=== PATIENT | female | born 1980 | race American Indian/Alaskan Native ===

== ENCOUNTER 2016-10-25 20:30 | Emergency (ER) | payer OTHER ==
[2016-10-25 21:07] LABS: Basophils % (Auto) 0.8 % (0.0-1.8); Eosinophils % (Auto) 1.6 % (0.0-4.3); Hematocrit 36.4 % (30.3-42.9); Mean Corpuscular HGB Conc 33 % (30-34); Mean Corpuscular Hemoglobin 30 pg (28-32); Mean Corpuscular Volume 92 fl (79-97); Platelet Count 253 K/mm3 (140-440); Red Blood Count 3.97 M/mm3 (3.65-5.03); Red Cell Distribution Width 13.9 % (13.2-15.2); White Blood Count 8.4 K/mm3 (4.5-11.0)
[2016-10-25 21:32] LABS: Alanine Aminotransferase 15 units/L (7-56); Albumin 4.6 g/dL (3.9-5); Albumin/Globulin Ratio 1.4 %; Alkaline Phosphatase 96 units/L (35-129); Anion Gap 17 mmol/L; BUN/Creatinine Ratio 18.75; Blood Urea Nitrogen 15 mg/dL (7-17); Calcium 11.4 mg/dL (8.4-10.2); Carbon Dioxide 26 mmol/L (22-30); Chloride 101.6 mmol/L (98-107); Glucose 91 mg/dL (65-100); Lipase 51 units/L (13-60); Potassium 4.3 mmol/L (3.6-5.0); Sodium 140 mmol/L (137-145); Total Protein 7.8 g/dL (6.3-8.2)
[2016-10-25 22:52] LABS: Bilirubin,Urine NEG (Negative); Blood,Urine NEG (Negative); Ketones,Urine NEG (Negative); Leukocyte Esterase,Urine TR (Negative); Mucus,Urine FEW /HPF; Nitrite,Urine NEG (Negative); Protein,Urine <15 mg/dL mg/dL (Negative); Urobilinogen,Urine < 2.0 mg/dL (<2.0)
[2016-10-25] MEDS ORDERED: PROVENTIL IH ONE (23:05)
--- NOTE | 2016-10-26 06:28 | Emergency Department Report ---
ED Abdominal Pain HPI - General Chief Complaint: Abdominal Pain Stated Complaint: ABD PAIN Time Seen by Provider: 10/26/16 05:59 Source: patient Mode of arrival: Ambulatory Limitations: No Limitations - History of Present Illness Initial Comments: 36-year-old female presents to the emergency department with 2 days of right lower quadrant pain radiating to the back. Patient states pain started several days ago. She describes it as sharp in nature she has no nausea no vomiting. She does have some mild urinary frequency but no dysuria. She otherwise appears well. No diarrhea. No vaginal bleeding or vaginal discharge. MD Complaint: abdominal pain -: days(s) (2) Location: RLQ Radiation: R flank Migration to: no migration Severity: moderate Quality: sharp Consistency: constant Improves With: nothing Worsens With: nothing Associated Symptoms: denies: nausea, vomiting, diarrhea, constipation, dysuria, hematemesis, melena, hematuria - Related Data Previous Rx's Medication Instructions Recorded Last Taken Type Ibuprofen [Motrin] 800 mg PO Q8HR PRN #30 tablet 11/01/15 Unknown Rx Ibuprofen [Motrin] 600 mg PO Q8H PRN #30 tablet 10/26/16 Unknown Rx Allergies Allergy/AdvReac Type Severity Reaction Status Date / Time No Known Allergies Allergy Unverified 11/01/15 16:30 ED Review of Systems ROS: Stated complaint: ABD PAIN Other details as noted in HPI Comment: All other systems reviewed and negative Constitutional: denies: chills, fever Eyes: denies: eye pain, eye discharge, vision change ENT: denies: ear pain, throat pain Respiratory: denies: cough, shortness of breath, wheezing Cardiovascular: denies: chest pain, palpitations Endocrine: no symptoms reported Gastrointestinal: abdominal pain. denies: nausea, vomiting, diarrhea, constipation, hematemesis, melena, hematochezia Genitourinary: urgency. denies: dysuria, frequency, hematuria, discharge Musculoskeletal: denies: back pain, joint swelling, arthralgia Skin: denies: rash, lesions Neurological: denies: headache, weakness, paresthesias Psychiatric: denies: anxiety, depression Hematological/Lymphatic: denies: easy bleeding, easy bruising ED Past Medical Hx - Past Medical History Hx Asthma: Yes - Surgical History Additional Surgical History: cyst removed from right side of face - Family History Family history: no significant - Social History Smoking Status: Current Every Day Smoker - Medications Home Medications: Home Medications Medication Instructions Recorded Confirmed Last Taken Type Ibuprofen [Motrin] 800 mg PO Q8HR PRN #30 tablet 11/01/15 Unknown Rx Ibuprofen [Motrin] 600 mg PO Q8H PRN #30 tablet 10/26/16 Unknown Rx ED Physical Exam - General Limitations: No Limitations General appearance: alert, in no apparent distress - Head Head exam: Present: atraumatic, normocephalic - Eye Eye exam: Present: normal appearance. Absent: scleral icterus, conjunctival injection - ENT ENT exam: Present: mucous membranes moist - Neck Neck exam: Present: normal inspection. Absent: lymphadenopathy - Respiratory Respiratory exam: Present: normal lung sounds bilaterally. Absent: respiratory distress, wheezes - Cardiovascular Cardiovascular Exam: Present: regular rate, normal rhythm, normal heart sounds. Absent: systolic murmur, diastolic murmur, rubs, gallop - GI/Abdominal GI/Abdominal exam: Present: soft, tenderness (mild right lower quadrant tenderness), normal bowel sounds. Absent: distended, guarding, rebound - Extremities Exam Extremities exam: Present: normal inspection - Back Exam Back exam: Present: normal inspection - Neurological Exam Neurological exam: Present: alert, oriented X3 - Psychiatric Psychiatric exam: Present: normal affect, normal mood - Skin Skin exam: Present: warm, dry, intact, normal color. Absent: rash ED Course Vital Signs 10/25/16 10/26/16 10/26/16 20:42 01:53 07:20 Temperature 98.5 F 97.8 F 98.7 F Pulse Rate 86 86 92 H Respiratory 18 18 16 Rate Blood Pressure 120/76 100/58 Blood Pressure 102/67 [Right] O2 Sat by Pulse 98 100 99 Oximetry 10/26/16 09:57 Temperature 98.6 F Pulse Rate 87 Respiratory 16 Rate Blood Pressure Blood Pressure 113/79 [Right] O2 Sat by Pulse 100 Oximetry ED Medical Decision Making - Lab Data Result diagrams: 10/25/16 20:52 10/25/16 20:52 Laboratory Last Values WBC 8.4 K/mm3 (4.5-11.0) 10/25/16 20:52 RBC 3.97 M/mm3 (3.65-5.03) 10/25/16 20:52 Hgb 12.0 gm/dl (10.1-14.3) 10/25/16 20:52 Hct 36.4 % (30.3-42.9) 10/25/16 20:52 MCV 92 fl (79-97) 10/25/16 20:52 MCH 30 pg (28-32) 10/25/16 20:52 MCHC 33 % (30-34) 10/25/16 20:52 RDW 13.9 % (13.2-15.2) 10/25/16 20:52 Plt Count 253 K/mm3 (140-440) 10/25/16 20:52 Lymph % (Auto) 29.8 % (13.4-35.0) 10/25/16 20:52 [place] % (Auto) 8.4 % (0.0-7.3) H 10/25/16 20:52 Eos % (Auto) 1.6 % (0.0-4.3) 10/25/16 20:52 Baso % (Auto) 0.8 % (0.0-1.8) 10/25/16 20:52 Lymph # 2.5 K/mm3 (1.2-5.4) 10/25/16 20:52 [place] # 0.7 K/mm3 (0.0-0.8) 10/25/16 20:52 Eos # 0.1 K/mm3 (0.0-0.4) 10/25/16 20:52 Baso # 0.1 K/mm3 (0.0-0.1) 10/25/16 20:52 Seg Neutrophils % 59.4 % (40.0-70.0) 10/25/16 20:52 Seg Neutrophils # 5.0 K/mm3 (1.8-7.7) 10/25/16 20:52 Sodium 140 mmol/L (137-145) 10/25/16 20:52 Potassium 4.3 mmol/L (3.6-5.0) 10/25/16 20:52 Chloride 101.6 mmol/L (98-107) 10/25/16 20:52 Carbon Dioxide 26 mmol/L (22-30) 10/25/16 20:52 Anion Gap 17 mmol/L 10/25/16 20:52 BUN 15 mg/dL (7-17) 10/25/16 20:52 Creatinine 0.8 mg/dL (0.7-1.2) 10/25/16 20:52 Estimated GFR > 60 ml/min 10/25/16 20:52 BUN/Creatinine Ratio 18.75 % 10/25/16 20:52 Glucose 91 mg/dL (65-100) 10/25/16 20:52 Calcium 11.4 mg/dL (8.4-10.2) H 10/25/16 20:52 Total Bilirubin 0.40 mg/dL (0.1-1.2) 10/25/16 20:52 AST 13 units/L (5-40) 10/25/16 20:52 ALT 15 units/L (7-56) 10/25/16 20:52 Alkaline Phosphatase 96 units/L (35-129) 10/25/16 20:52 Total Protein 7.8 g/dL (6.3-8.2) 10/25/16 20:52 Albumin 4.6 g/dL (3.9-5) 10/25/16 20:52 Albumin/Globulin Ratio 1.4 % 10/25/16 20:52 Lipase 51 units/L (13-60) 10/25/16 20:52 HCG, Qual Negative (Negative) 10/25/16 20:52 Urine Color Yellow (Yellow) 10/25/16 22:18 Urine Turbidity Clear (Clear) 10/25/16 22:18 Urine pH 7.0 (5.0-7.0) 10/25/16 22:18 Ur Specific [place] 1.015 (1.003-1.030) 10/25/16 22:18 Urine Protein <15 mg/dl mg/dL (Negative) 10/25/16 22:18 Urine Glucose (UA) Neg mg/dL (Negative) 10/25/16 22:18 Urine Ketones Neg mg/dL (Negative) 10/25/16 22:18 Urine Blood Neg (Negative) 10/25/16 22:18 Urine Nitrite Neg (Negative) 10/25/16 22:18 Urine Bilirubin Neg (Negative) 10/25/16 22:18 Urine Urobilinogen < 2.0 mg/dL (<2.0) 10/25/16 22:18 Ur Leukocyte Esterase Tr (Negative) 10/25/16 22:18 Urine WBC (Auto) 3.0 /HPF (0.0-6.0) 09/18/17 22:18 Urine RBC (Auto) 5.0 /HPF (0.0-6.0) 10/25/16 22:18 U Epithel Cells (Auto) < 1.0 /HPF (0-13.0) 10/25/16 22:18 Urine Mucus Few /HPF 10/25/16 22:18 - Medical Decision Making 36-year-old female who presents emergency Department with complaint right lower quadrant pain. Patient states she is has had pain for the last 2 days. Denies fevers chills. She is mildly tender right lower quadrant. Plan to get an ultrasound of the pelvis. Do not suspect acute surgical pathology. Normal white count, she does have a few white blood cells in her urine. 1.7 cm right ovarian cyst noted. Plan to discharge home with NSAIDs. Follow up with outpatient machine learning intern. Portions of this chart were dictated with dictation software. There may be dictation errors contained within this note. Critical care attestation.: If time is entered above; I have spent that time in minutes in the direct care of this critically ill patient, excluding procedure time. ED Disposition Clinical Impression: Ovarian cyst Disposition: DC-01 TO HOME OR SELFCARE Is pt being admited?: No Condition: Stable Instructions: Abdominal Pain (ED) Prescriptions: Ibuprofen [Motrin] 600 mg PO Q8H PRN #30 tablet PRN Reason: Pain Referrals: DAVON KING [Other] - 3-5 Days
--- NOTE | 2016-10-26 08:57 | Ultrasound Report ---
ULTRASOUND PELVIC COMPLETE ULTRASOUND TRANSVAGINAL HISTORY: Right lower quadrant pain, abdominal pain. TECHNIQUE: Transabdominal and transvaginal ultrasound with color and spectral doppler interrogation. The uterus is anteverted and measures 8 x 4 x 5 cm. A fundal fibroid measures 2.6 x 3.2 x 3.1 cm. The endometrial stripe measures 1.2 cm. The right ovary measures 3.4 x 1.4 x 3.1 cm. A 1.7 cm simple cyst is identified in the right ovary. The left ovary is unremarkable measuring 2.5 x 1.4 x 2.2 cm. No pelvic fluid collection. IMPRESSION: 1.7 cm right ovarian cyst. Uterine fibroid.
[2016-10-26 09:58] VITALS: BP 113/79
== END 2016-10-26 10:36 | disposition home or self-care (01) ==
LOC: ED 20:30
DX: N83.209 Unspecified ovarian cyst, unspecified side (principal); J45.909 Unspecified asthma, uncomplicated; F17.200 Nicotine dependence, unspecified, uncomplicated
CPT/HCPCS: 36415; 76830; 76856; 80053; 81001; 83690; 84703; 85025; 94640

== ENCOUNTER 2017-02-09 11:54 | Emergency (ER) | payer BC, OTHER ==
[2017-02-09 13:43] LABS: Basophils # (Auto) 0.1 K/mm3 (0.0-0.1); Basophils % (Auto) 0.6 % (0.0-1.8); Eosinophils % (Auto) 0.3 % (0.0-4.3); Hematocrit 37.8 % (30.3-42.9); Hemoglobin 12.3 gm/dl (10.1-14.3); Lymphocytes # (Auto) 1.3 K/mm3 (1.2-5.4); Lymphocytes % (Auto) 10.4 % (13.4-35.0); Mean Corpuscular HGB Conc 33 % (30-34); Mean Corpuscular Hemoglobin 30 pg (28-32); Mean Corpuscular Volume 93 fl (79-97); Monocytes # (Auto) 0.6 K/mm3 (0.0-0.8); Monocytes % (Auto) 4.5 % (0.0-7.3); Platelet Count 273 K/mm3 (140-440); Red Blood Count 4.06 M/mm3 (3.65-5.03); Red Cell Distribution Width 13.7 % (13.2-15.2)
[2017-02-09 13:55] LABS: Bacteria,Urine 2+ /HPF (Negative); Bilirubin,Urine NEG (Negative); Blood,Urine LG (Negative); Color,Urine Yellow (Yellow); Mucus,Urine 1+ /HPF; Nitrite,Urine NEG (Negative); Protein,Urine <15 mg/dL mg/dL (Negative); Urobilinogen,Urine < 2.0 mg/dL (<2.0)
[2017-02-09 14:00] LABS: Alanine Aminotransferase 21 units/L (7-56); Albumin 4.5 g/dL (3.9-5); BUN/Creatinine Ratio 16; Blood Urea Nitrogen 13 mg/dL (7-17); Calcium 11.5 mg/dL (8.4-10.2); Hemolysis Index 6
--- NOTE | 2017-02-09 15:34 | XRay Report ---
ROUTINE CHEST, TWO VIEWS: History: Shortness of breath. PA and lateral views demonstrate the heart and mediastinal contour to be of normal size and shape. The lungs are clear and fully expanded and the soft tissues and bony structures are normal. IMPRESSION: Normal study.
[2017-02-09 16:59] VITALS: BP 112/68
== END 2017-02-09 21:57 | disposition left against medical advice (07) ==
LOC: ED 11:54
DX: R10.9 Unspecified abdominal pain (principal); Z53.21 Procedure and treatment not carried out due to patient leaving prior to being seen by health care provider
CPT/HCPCS: 36415; 71046; 80053; 81001; 85025

== ENCOUNTER 2017-10-02 21:16 | Emergency (ER) | payer OTHER ==
[2017-10-02 21:21] VITALS: BP 120/74
--- NOTE | 2017-10-02 22:11 | XRay Report ---
FINAL REPORT EXAM: XR ANKLE 3+V RT HISTORY: pain/swelling r/t injury TECHNIQUE: Frontal, lateral and mortise views right ankle Comparison: None FINDINGS: There is no evidence of fracture or subluxation. The mortise joint is maintained. The soft tissues are notable for the appearance of edema in the lower leg and ankle. IMPRESSION: 1. Appearance of edema in the lower leg and ankle. 2. No evidence of fracture or subluxation.
[2017-10-03] MEDS ORDERED: ULTRAM PO ONE (00:26)
--- NOTE | 2017-10-03 01:14 | Emergency Department Report ---
ED Lower Extremity HPI - General Chief Complaint: Extremity Injury, Lower Stated Complaint: RT ANKLE PAIN Time Seen by Provider: 10/03/17 00:21 Source: patient Mode of arrival: Ambulatory Limitations: No Limitations - History of Present Illness Initial Comments: A 37-year-old Afro-[place] female who states right ankle pain after twisting it and missing a step this afternoon patient states she E Fran her right ankle with ankle pain and swelling similar to an aching and tingling pain is exacerbated by tender weight bearing initially by offloading elevating his no open wounds bleeding or lacerations Complaint: ankle injury Onset/Timin -: hour(s) Injury: Ankle: Right Type of Injury: eversion Place: home Severity: moderate Severity scale (0 -10): 5 Improves With: rest Worsens With: weight bearing, movement, palpation Context: fall Other Symptoms: loss of consciousness Associated Symptoms: swelling, tingling, unable to bear weight - Related Data Previous Rx's Medication Instructions Recorded Last Taken Type Ibuprofen [Motrin] 800 mg PO Q8HR PRN #30 tablet 11/01/15 Unknown Rx Ibuprofen [Motrin] 600 mg PO Q8H PRN #30 tablet 10/26/16 Unknown Rx Cyclobenzaprine [Flexeril] 10 mg PO BID PRN #20 tablet 10/03/17 Unknown Rx Naproxen [Naprosyn] 500 mg PO BID PRN #30 tablet 10/03/17 Unknown Rx Allergies Allergy/AdvReac Type Severity Reaction Status Date / Time No Known Allergies Allergy Unverified 11/01/15 16:30 ED Review of Systems ROS: Stated complaint: RT ANKLE PAIN Other details as noted in HPI Constitutional: denies: chills, fever Eyes: denies: eye pain, eye discharge, vision change ENT: denies: ear pain, throat pain Respiratory: denies: cough, shortness of breath, wheezing Cardiovascular: denies: chest pain, palpitations Endocrine: no symptoms reported Gastrointestinal: denies: abdominal pain, nausea, diarrhea Genitourinary: denies: urgency, dysuria, discharge Musculoskeletal: joint swelling, myalgia Skin: denies: rash, lesions Neurological: denies: headache, weakness, paresthesias Psychiatric: denies: anxiety, depression Hematological/Lymphatic: denies: easy bleeding, easy bruising ED Past Medical Hx - Past Medical History Hx Asthma: Yes - Surgical History Additional Surgical History: cyst removed from right side of face - Social History Smoking Status: Current Every Day Smoker Substance Use Type: None - Medications Home Medications: Home Medications Medication Instructions Recorded Confirmed Last Taken Type Ibuprofen [Motrin] 800 mg PO Q8HR PRN #30 tablet 11/01/15 Unknown Rx Ibuprofen [Motrin] 600 mg PO Q8H PRN #30 tablet 10/26/16 Unknown Rx Cyclobenzaprine [Flexeril] 10 mg PO BID PRN #20 tablet 10/03/17 Unknown Rx Naproxen [Naprosyn] 500 mg PO BID PRN #30 tablet 10/03/17 Unknown Rx ED Physical Exam - General Limitations: No Limitations General appearance: alert, in no apparent distress - Head Head exam: Present: atraumatic, normocephalic - Eye Eye exam: Present: normal appearance - ENT ENT exam: Present: mucous membranes moist - Neck Neck exam: Present: normal inspection - Respiratory Respiratory exam: Present: normal lung sounds bilaterally. Absent: respiratory distress - Cardiovascular Cardiovascular Exam: Present: regular rate, normal rhythm. Absent: systolic murmur, diastolic murmur, rubs, gallop - GI/Abdominal GI/Abdominal exam: Present: soft, normal bowel sounds - Rectal Rectal exam: Present: deferred - Extremities Exam Extremities exam: Present: tenderness (right medial ankle ), normal capillary refill, joint swelling. Absent: calf tenderness - Expanded Lower Extremity Exam Right Ankle exam: Present: tenderness, swelling. Absent: abrasion, laceration, ecchymosis, deformity, crepidus, dislocation, erythema, anterior draw sign Foot/Toe exam: Present: normal inspection, full ROM Neuro vascular tendon exam: Present: no vascular compromise, pulse deficit. Absent: abnormal cap refill, motor deficit, pallor, abnormal 2-point discrimination, decreased fine/light touch, foot drop, peroneal nerve deficit, significant pain with passive ROM of distal joint Gait: Positive: observed and limited by pain - Back Exam Back exam: Present: normal inspection, full ROM. Absent: tenderness - Neurological Exam Neurological exam: Present: alert, oriented X3, CN II-XII intact, abnormal gait , reflexes normal. Absent: motor sensory deficit - Psychiatric Psychiatric exam: Present: normal affect, normal mood - Skin Skin exam: Present: warm, dry, intact, normal color. Absent: rash ED Course Vital Signs 10/02/17 10/02/17 21:20 21:21 Temperature 99.3 F 99.3 F Pulse Rate 105 H 101 H Respiratory 18 18 Rate Blood Pressure 120/74 120/74 O2 Sat by Pulse 97 96 Oximetry ED Lower Extremity MDM - Radiology Data Radiology results: report reviewed, image reviewed No fracture moderate soft tissue swelling right ankle - Medical Decision Making This is a medial ankle sprain plan [place] wrap and ankle stirrup and crutches with easy prescription for naproxen and Flexeril patient will follow-up with also in 2-3 days splint check completed to pulses palpable patient demonstrated safe use of crutches patient DC to home in stable condition at this time we'll follow with ortho in 2 to 3 days Critical care attestation.: If time is entered above; I have spent that time in minutes in the direct care of this critically ill patient, excluding procedure time. ED Disposition Clinical Impression: Medial ankle sprain Qualifiers: Encounter type: initial encounter Laterality: right Qualified Code(s): S93.421A - Sprain of deltoid ligament of right ankle, initial encounter Disposition: DC-01 TO HOME OR SELFCARE Is pt being admited?: No Does the pt Need Aspirin: No Condition: Good Instructions: Ankle Sprain (ED), Ankle Stirrup Splint (ED), Ankle Exercises ( GEN) Prescriptions: Cyclobenzaprine [Flexeril] 10 mg PO BID PRN #20 tablet PRN Reason: Muscle Spasm Naproxen [Naprosyn] 500 mg PO BID PRN #30 tablet PRN Reason: pain Referrals: NIC LEGER MD [Staff Physician] - 3-5 Days Forms: Work/School Release Form(ED) Time of Disposition: 01:16
== END 2017-10-03 01:20 | disposition home or self-care (01) ==
LOC: ED 21:16
DX: S93.421A Sprain of deltoid ligament of right ankle, initial encounter (principal); J45.909 Unspecified asthma, uncomplicated; F17.200 Nicotine dependence, unspecified, uncomplicated; W10.9XXA Fall (on) (from) unspecified stairs and steps, initial encounter; Y93.89 Activity, other specified; Y92.009 Unspecified place in unspecified non-institutional (private) residence as the place of occurrence of the external cause; Y99.8 Other external cause status
CPT/HCPCS: 99283

== ENCOUNTER 2018-06-27 15:00 | Emergency (ER) | payer SELFPAY ==
--- NOTE | 2018-06-27 15:39 | Emergency Department Report ---
Blank Doc - Documentation Documentation: 38 y o female presents to ed cc of right sided flank pain x 2 weeks ago cc of pain worsens with inhaling no trauma ua,upt ACC eval
[2018-06-27] MEDS ORDERED: SUBLIMAZE IV ONE (16:45)
[2018-06-27] MEDS ORDERED: TORADOL IV ONE (16:45)
[2018-06-27] MEDS ORDERED: NACL 0.9% 500 ML 500 ML IV ONE (16:46)
[2018-06-27 17:10] LABS: Bilirubin,Urine NEG (Negative); Blood,Urine MOD (Negative); Color,Urine Yellow (Yellow); HCG Qualitative,Urine Negative (Negative); Mucus,Urine 1+ /HPF; Protein,Urine <15 mg/dL mg/dL (Negative)
--- NOTE | 2018-06-27 17:16 | Emergency Department Report ---
ED General Adult HPI - General Chief complaint: Abdominal Pain Stated complaint: LOWER BACK/ABD PAIN/BREATHING PAIN Time Seen by Provider: 06/27/18 15:34 Source: patient, RN notes reviewed Mode of arrival: Ambulatory Limitations: No Limitations - History of Present Illness Initial comments: This is a pleasant 38-year-old female who is not known to this provider previously. The patient is not known as provided previously. She reports that she is not . She does not have primary care doctor. She reports that she does not take oral contraceptives. She denies chronic medical conditions. The patient presents to the emergency room with complaint of nontraumatic right- sided upper thoracic back pain, right upper quadrant pain, flank pain. This pain is present for the past 2-3 weeks. It radiates from the back to the front, and vice versa. It increases with palpation, deep inspiration, twisting, sitting, and decreases with rest. No significant improvement with symptoms with [id number] remedies. The patient denies oral contraceptive use, leg pain, leg swelling, surgeries, immobilization. She is right-hand dominant and indic ates no heavy lifting. She feels like her urine has been "off colored." However, she denies irritative/obstructive urinary symptoms. She denies chest pain, shortness of breath. She denies left-sided abdominal pain. She denies dysuria. She denies leg pain or leg swelling. -: Gradual, week(s) Location: back, abdomen Radiation: abdomen Severity scale (0 -10): 7 Quality: aching Consistency: other Improves with: other Worsens with: other - Related Data Previous Rx's Medication Instructions Recorded Last Taken Type Ibuprofen [Motrin] 800 mg PO Q8HR PRN #30 tablet 11/01/15 Unknown Rx Ibuprofen [Motrin] 600 mg PO Q8H PRN #30 tablet 10/26/16 Unknown Rx Cyclobenzaprine [Flexeril] 10 mg PO BID PRN #20 tablet 10/03/17 Unknown Rx Naproxen [Naprosyn] 500 mg PO BID PRN #30 tablet 10/03/17 Unknown Rx Acetaminophen [Non-Aspirin Extra 500 mg PO Q6HR PRN #30 tablet 06/27/18 Unknown Rx Strength] Ibuprofen [Motrin] 600 mg PO Q8H PRN #30 tablet 06/27/18 Unknown Rx Allergies Allergy/AdvReac Type Severity Reaction Status Date / Time No Known Allergies Allergy Verified 06/27/18 15:02 ED Review of Systems ROS: Stated complaint: LOWER BACK/ABD PAIN/BREATHING PAIN Other details as noted in HPI Constitutional: denies: fever Eyes: denies: eye discharge ENT: denies: epistaxis Respiratory: denies: cough, shortness of breath Cardiovascular: denies: chest pain Gastrointestinal: abdominal pain, nausea. denies: vomiting Genitourinary: hematuria. denies: urgency, dysuria Musculoskeletal: back pain Skin: denies: lesions Neurological: denies: weakness Psychiatric: denies: anxiety ED Past Medical Hx - Past Medical History Hx Asthma: Yes - Surgical History Additional Surgical History: cyst removed from right side of face - Social History Smoking Status: Current Every Day Smoker Substance Use Type: None - Medications Home Medications: Home Medications Medication Instructions Recorded Confirmed Last Taken Type Ibuprofen [Motrin] 800 mg PO Q8HR PRN #30 tablet 11/01/15 Unknown Rx Ibuprofen [Motrin] 600 mg PO Q8H PRN #30 tablet 10/26/16 Unknown Rx Cyclobenzaprine [Flexeril] 10 mg PO BID PRN #20 tablet 10/03/17 Unknown Rx Naproxen [Naprosyn] 500 mg PO BID PRN #30 tablet 10/03/17 Unknown Rx Acetaminophen [Non-Aspirin Extra 500 mg PO Q6HR PRN #30 tablet 06/27/18 Unknown Rx Strength] Ibuprofen [Motrin] 600 mg PO Q8H PRN #30 tablet 06/27/18 Unknown Rx ED Physical Exam - General Limitations: No Limitations, Other (patient noted to be speaking and playing on a cellular phone, and no acute distress) General appearance: alert, in no apparent distress - Head Head exam: Present: atraumatic, normocephalic - Eye Eye exam: Present: normal appearance, EOMI. Absent: nystagmus - ENT ENT exam: Present: normal exam, normal orophraynx, mucous membranes moist, normal external ear exam - Neck Neck exam: Present: normal inspection, full ROM. Absent: tenderness, meningismus - Respiratory Respiratory exam: Present: normal lung sounds bilaterally. Absent: respiratory distress - Cardiovascular Cardiovascular Exam: Present: regular rate, normal rhythm, normal heart sounds, other (chaperoned by lorenza Eden). Absent: bradycardia, tachycardia, irregular rhythm, systolic murmur, diastolic murmur, rubs, gallop - GI/Abdominal GI/Abdominal exam: Present: soft, tenderness, other (there is right mid flank tenderness. There is right upper quadrant tenderness. There is no right lower quadrant tenderness. There is negative Diego sign. There is negative Rovsing sign.). Absent: distended, guarding, rebound, rigid, pulsatile mass - Extremities Exam Extremities exam: Present: normal inspection, full ROM, other (2+ pulses noted in the bilateral upper, lower extremities. Compartments soft. No long bony tenderness. The pelvis is stable.). Absent: pedal edema, joint swelling, calf tenderness - Back Exam Back exam: Present: normal inspection, full ROM, CVA tenderness (R), paraspinal tenderness. Absent: tenderness, CVA tenderness (L), muscle spasm, vertebral tenderness - Neurological Exam Neurological exam: Present: alert, oriented X3, normal gait, other (Extraocular movements intact. Tongue midline. No facial droop. Facial sensation intact to light touch in the V1, V2, V3 distribution bilaterally. 5 and 5 strength in 4 extremities.. Sensation is intact to light touch in 4 extremities.). Absent: motor sensory deficit - Psychiatric Psychiatric exam: Present: normal affect, normal mood - Skin Skin exam: Present: warm, dry, intact, normal color. Absent: rash ED Course Vital Signs 06/27/18 06/27/18 06/27/18 15:34 18:26 18:27 Temperature 98 F Pulse Rate 84 Respiratory 18 18 18 Rate Blood Pressure Blood Pressure 115/69 [Right] O2 Sat by Pulse 99 Oximetry 06/27/18 06/27/18 06/27/18 18:34 18:45 18:47 Temperature Pulse Rate 85 Respiratory 16 Rate Blood Pressure Blood Pressure 120/65 [Right] O2 Sat by Pulse 99 99 98 Oximetry 06/27/18 06/27/18 06/27/18 19:00 19:15 19:31 Temperature Pulse Rate Respiratory Rate Blood Pressure 122/76 119/77 111/69 Blood Pressure [Right] O2 Sat by Pulse 100 100 100 Oximetry - Reevaluation(s) Reevaluation #1: 06/27/18 17:14 Differential diagnosis, including not limited to: Musculoskeletal pain, biliary colic, renal colic, pneumonia, urinary tract infection Assessment and plan: 38-year-old female, not tachycardic, not hypoxic, no pulmonary embolus or DVT risk factors, low risk by well's criteria, perc negative, with abdominal and flank pain, and right-sided abdominal tenderness. The patient is afebrile, with reassuring vital signs, and does not appear to be in any acute distress. We will treat her symptoms. We will obtain appropriate screening laboratory studies. Right upper quadrant ultrasound ordered, x-ray of the chest ordered, CT scan of the abdomen and pelvis ordered. We will reassess after her data points have resulted. Reevaluation #2: 06/27/18 21:53 The patient is reevaluated multiple times during her stay here in the emergency room. She is in no acute distress, and her belly is soft on repeat examinations. She is noted to be playing on a phone multiple times during multiple repeat evaluations. She endorses a known history of fibroids. CT scan reports are reviewed and appreciated. The patient will need to follow up with her primary care doctor for further evaluates the incidental ovoid mass noted next to the gallbladder. The patient was given copies of her CT scan reports, and ultrasound, and strongly encouraged to follow up as an outpatient. For the patient's uterine fibroid, she will be referred to outpatient gynecology. The patient endorses a known history of fibroids, and it is my opinion that she does not require emergency pelvic ultrasound. The patient is also encouraged to follow-up with an outpatient urology spe cialist for microscopic hematuria, nephrolithiasis. ED Medical Decision Making - Lab Data Result diagrams: 06/27/18 17:10 06/27/18 17:10 Vital Signs 06/27/18 15:34 Temperature 98 F Pulse Rate 84 Respiratory 18 Rate Blood Pressure 115/69 [Right] O2 Sat by Pulse 99 Oximetry Lab Results 06/27/18 Range/Units 15:59 Urine Color Yellow (Yellow) Urine Turbidity Clear (Clear) Urine pH 5.0 (5.0-7.0) Ur Specific Roundup 1.020 (1.003-1.030) Urine Protein <15 mg/dl (Negative) mg/dL Urine Glucose (UA) Neg (Negative) mg/dL Urine Ketones Neg (Negative) mg/dL Urine Blood Mod (Negative) Urine Nitrite Neg (Negative) Urine Bilirubin Neg (Negative) Urine Urobilinogen 2.0 (<2.0) mg/dL Ur Leukocyte Esterase Neg (Negative) Urine WBC (Auto) 7.0 H (0.0-6.0) /HPF Urine RBC (Auto) 29.0 (0.0-6.0) /HPF U Epithel Cells (Auto) 1.0 (0-13.0) /HPF Urine Mucus 1+ /HPF Urine HCG, Qual Negative (Negative) - EKG Data -: EKG Interpreted by Or EKG shows normal: sinus rhythm Rate: normal - EKG Data When compared to previous EKG there are: previous EKG unavailable 06/27/18 17:15 This is a sinus rhythm, 87 bpm, normal axis, normal intervals, low voltage in the anteroseptal leads, motion artifact in the lateral leads, this is an abnormal EKG, the patient is not having chest pain, this EKG is not consistent with ST elevation myocardial infarction. There is no prior EKG available for comparison. - Radiology Data Radiology results: pending, report reviewed, image reviewed Print Report Referring Physician: VICTOR M BETANCUR Patient Name: EYAL REMY Date of : 1980 Sex: Female Report Date: 2018-06-27 Report Status: Finalized Findings [facility] [address] [place] [address] Ultrasound Report Signed Patient: EYAL REMY MR#: [id number] : 1980 Acct:[id number] Age/Sex: 38 / F ADM Date: 06/27/18 Loc: ED Attending Dr: Ordering Physician: VICTOR M BETANCUR MD Date of Service: 06/27/18 Procedure(s): US abdomen limited Accession Number(s): [id number] cc: VICTOR M BETANCUR MD PROCEDURE: US GALLBLADDER TECHNIQUE: Real-time sonography in multiple planes of the gallbladder fossa and CBD with imaging of the adjacent liver, pancreas, and right kidney was performed with image documentation. CPT 01068 HISTORY: Right upper quadrant pain COMPARISONS: None . FINDINGS: Liver: There is a ovoid solid-appearing mass adjacent to the gallbladder. Gallbladder: Fluid filled. No gallstones, wall thickening, pericholecystic fluid, or sonographic Diego's sign. Intrahepatic bile ducts: Normal . Extrahepatic bile ducts: 5 mm in caliber. Pancreas: Not fully visualized. Right kidney: Normal echotexture. No focal renal mass, calculus, or hydronep hrosis. Other: No free fluid. IMPRESSION: Ovoid solid-appearing mass is seen in the liver adjacent to the gallbladder. No cholelithiasis or evidence of cholecystitis. . This document is electronically signed by Talia Gómez MD., Jun 27 2018 09:37:10 PM ET Transcribed By: [facility] Dictated By: TALIA GÓMEZ M.D. Electronically Authenticated By: TALIA GÓMEZ M.D. Signed Date/Time: 06/27/182138 Print Report Referring Physician: VICTOR M BETANCUR Patient Name: EYAL REMY Date of : 1980 Sex: Female Report Date: 2018-06-27 Report Status: Finalized Findings [facility] [address] [place] [address] Cat Scan Report Signed Patient: EYAL REMY MR#: [id number] : 1980 Acct:[id number] Age/Sex: 38 / F ADM Date: 06/27/18 Loc: ED Attending Dr: Ordering Physician: VICTOR M BETANCUR MD Date of Service: 06/27/18 Procedure(s): CT abdomen pelvis w con Accession Number(s): [id number] cc: VICTOR M BETANCUR MD PROCEDURE: CT ABDOMEN PELVIS W CON TECHNIQUE: Computerized axial tomography of the abdomen and pelvis was performed after the IV injection of iodinated nonionic contrast. HISTORY: right sided abd pain COMPARISONS: None . FINDINGS: Visualized lower thorax: No significant abnormality. Liver: Normal size and attenuation. Spleen: Normal size and attenuation. Gallbladder and biliary system: Normal. Pancreas: Normal. Adrenals: Normal. Kidneys: Nonobstructing left renal calculus, measuring 3 mm. There is a 4 mm calculus in the right renal pelvis. No ureteral calculi are seen GI tract: Appendix is visualized and does not appear inflamed. No bowel obstruction or inflammation . Lymph nodes and mesentery: Normal. Vasculature: Normal.. Bladder: Normal. Reproductive organs: There is a solid heterogeneously enhancing mass abutting the uterine fundus, measuring up to 7.8 cm. This could be related to a large uterine fibroid. Peritoneum: There is a small amount of free fluid in the pelvis. Musculoskeletal structures: No significant abnormality. Other: None . IMPRESSION: Bilateral nonobstructing renal calculi. No ureteral calculi are seen. No bowel obstruction or inflammation. Pelvic mass is likely related to a uterine fibroid. Findings favored less likely to be related to ovarian mass. Correlate with pelvic ultrasound, if not already performed . This document is electronically signed by Talia Gómez MD., Jun 27 2018 07:55:11 PM ET Transcribed By: [facility] Dictated By: TALIA GÓMEZ M.D. Electronically Authenticated By: TALIA GÓMEZ M.D. Signed Date/Time: 06/27/181955 Critical care attestation.: If time is entered above; I have spent that time in minutes in the direct care of this critically ill patient, excluding procedure time. ED Disposition Clinical Impression: Abdominal pain, Microscopic hematuria Disposition: DC-01 TO HOME OR SELFCARE Is pt being admited?: No Does the pt Need Aspirin: No Condition: Stable Instructions: Abdominal Pain (ED) Additional Instructions: Take the pain medication as needed/directed. Rest, avoid heavy lifting, and avoid strenuous physical activities. CT scan of the abdomen and pelvis and ultrasound demonstrated multiple incidental findings which require outpatient follow-up. Nonspecific mass was noted next to the gallbladder on CT scan and ultrasound. The patient should follow-up with the primary care doctor within the next month to have this further evaluated. Not following up as recommended may resultant undiagnosed tumor, cancer, malignancy. CT scan of the abdomen and pelvis demonstrated nonspecific pelvic mass, likely uterine fibroid. Please follow-up with a agency service coordinator for this within the next 3-4 weeks. Not following up as recommended may resultant undiagnosed tumor, cancer, malignancy. Laboratory studies demonstrated elevated calcium levels, patient should consume 4-6 cups of water per day, and follow up with the primary care doctor within the next month to have calcium levels rechecked. Laboratory studies demonstrated blood in the urine, and this should be followed up by either her primary care doctor or urology specialist within the next month. Return to the emergency room right away with new, worsening or different symptoms, or symptoms not present on the initial ER evaluation. Prescriptions: Ibuprofen [Motrin] 600 mg PO Q8H PRN #30 tablet PRN Reason: Pain Acetaminophen [Non-Aspirin Extra Strength] 500 mg PO Q6HR PRN #30 tablet PRN Reason: Pain , Severe (7-10) Referrals: [facility] [Provider Group] - 3-5 Days [facility] [Provider Group] - 3-5 Days [facility] [Provider Group] - 3-5 Days Forms: Work/School Release Form(ED)
[2018-06-27 17:22] LABS: Hematocrit 40.6 % (30.3-42.9); Hemoglobin 13.3 gm/dl (10.1-14.3); Mean Corpuscular HGB Conc 33 % (30-34); Mean Corpuscular Volume 94 fl (79-97); Platelet Count 239 K/mm3 (140-440); Red Blood Count 4.33 M/mm3 (3.65-5.03); Red Cell Distribution Width 13.8 % (13.2-15.2)
[2018-06-27 17:41] LABS: Alanine Aminotransferase 23 units/L (7-56); Albumin 4.7 g/dL (3.9-5); BUN/Creatinine Ratio 14; Blood Urea Nitrogen 14 mg/dL (7-17); Calcium 11.8 mg/dL (8.4-10.2); Hemolysis Index 8
[2018-06-27 17:45] LABS: INR 0.92 (0.87-1.13)
[2018-06-27 19:32] VITALS: BP 111/69
--- NOTE | 2018-06-27 19:56 | Cat Scan Report ---
PROCEDURE: CT ABDOMEN PELVIS W CON TECHNIQUE: Computerized axial tomography of the abdomen and pelvis was performed after the IV inject ion of iodinated nonionic contrast. HISTORY: right sided abd pain COMPARISONS: None . FINDINGS: Visualized lower thorax: No significant abnormality. Liver: Normal size and attenuation. Spleen: Normal size and attenuation. Gallbladder and biliary system: Normal. Pancreas: Normal. Adrenals: Normal. Kidneys: Nonobstructing left renal calculus, measuring 3 mm. There is a 4 mm calculus in the right re nal pelvis. No ureteral calculi are seen GI tract: Appendix is visualized and does not appear inflamed. No bowel obstruction or inflammation . Lymph nodes and mesentery: Normal. Vasculature: Normal.. Bladder: Normal. Reproductive organs: There is a solid heterogeneously enhancing mass abutting the uterine fundus, lin suring up to 7.8 cm. This could be related to a large uterine fibroid. Peritoneum: There is a small amount of free fluid in the pelvis. Musculoskeletal structures: No significant abnormality. Other: None . IMPRESSION: Bilateral nonobstructing renal calculi. No ureteral calculi are seen. No bowel obstruction or inflammation. Pelvic mass is likely related to a uterine fibroid. Findings favored less likely to be related to ova austen mass. Correlate with pelvic ultrasound, if not already performed . This document is electronically signed by Talia Gómez MD., Jun 27 2018 07:55:11 PM ET
[2018-06-27] MEDS ORDERED: TYLENOL PO ONE (21:12)
[2018-06-27] MEDS ORDERED: TYLENOL ONE (21:12)
--- NOTE | 2018-06-27 21:39 | Ultrasound Report ---
PROCEDURE: US GALLBLADDER TECHNIQUE: Real-time sonography in multiple planes of the gallbladder fossa and CBD with imaging of the adjacent liver, pancreas, and right kidney was performed with image documentation. CPT 45362 HISTORY: Right upper quadrant pain COMPARISONS: None . FINDINGS: Liver: There is a ovoid solid-appearing mass adjacent to the gallbladder. Gallbladder: Fluid filled. No gallstones, wall thickening, pericholecystic fluid, or sonographic Mur phy's sign. Intrahepatic bile ducts: Normal . Extrahepatic bile ducts: 5 mm in caliber. Pancreas: Not fully visualized. Right kidney: Normal echotexture. No focal renal mass, calculus, or hydronephrosis. Other: No free fluid. IMPRESSION: Ovoid solid-appearing mass is seen in the liver adjacent to the gallbladder. No cholelithiasis or evidence of cholecystitis. . This document is electronically signed by Talia Gómez MD., Jun 27 2018 09:37:10 PM ET
== END 2018-06-27 22:19 | disposition home or self-care (01) ==
LOC: ED 15:00
DX: R31.29 Other microscopic hematuria (principal); R10.11 Right upper quadrant pain; F17.200 Nicotine dependence, unspecified, uncomplicated; J45.909 Unspecified asthma, uncomplicated
CPT/HCPCS: 36415; 74177; 76705; 80053; 81001; 81025; 82550; 83690; 83735; 84702; 85027; 85610; 93005; 93010; 96374; 96375; 99284; J1885; J3010; J7040; Q9967